=== PATIENT | male | born 1990 | race Caucasian/White ===

== ENCOUNTER 2018-05-02 15:43 | Emergency (ER) | payer OTHER ==
[~2018-05-02] VITALS: Ht 170.2 cm; Wt 78.0 kg
[2018-05-02 15:49] VITALS: Ht 170.2 cm; Wt 78.0 kg
[2018-05-02 16:20] VITALS: BP 118/79
== END 2018-05-02 16:20 | disposition home or self-care (01) ==
LOC: ED 15:43
DX: S01.111D Laceration without foreign body of right eyelid and periocular area, subsequent encounter (principal); X58.XXXD Exposure to other specified factors, subsequent encounter